=== PATIENT | female | born 1945 | race African-American/Black ===

== ENCOUNTER → 2017-06-02 | Outpatient (CLI) | payer MEDICARE | LOC: CARD 09:30 | PROVIDERS: ATTEND Physician Assistant | DX: I11.0 Hypertensive heart disease with heart failure (principal); I51.89 Other ill-defined heart diseases; Z82.49 Family history of ischemic heart disease and other diseases of the circulatory system | CPT/HCPCS: 93306 ==

== ENCOUNTER → 2018-01-17 | Outpatient (CLI) | payer MEDICARE ==
--- NOTE | 2018-01-17 13:19 | Diagnostic Imaging Report ---
PROCEDURE: US Thyroid. TECHNIQUE: Multiple real-time grayscale images were obtained of the thyroid in various projections. INDICATION: Multinodular goiter. COMPARISON: The patient's prior thyroid ultrasound done at [facility] is not available for direct comparison. The report is available. FINDINGS: The right lobe of the thyroid measures 5.8 x 2.9 x 3.1 cm and the left lobe measures 3.9 x 1.6 x 1.5 cm. There appears to be a solid nodule in the upper pole of left lobe measuring 8 mm x 6 mm x 10 mm. Previous report described a septated cystic mass in the upper pole. No cystic mass is visualized on today's study. In addition, prior report described a mixed solid-appearing nodule in the inferior aspect as well as an adjacent smaller solid nodule in the inferior aspect of left lobe. No nodules in the inferior left lobe are identified on today's study. On the right, there are two adjacent solid masses in the mid and lower pole. The largest is most cephalad measuring 2.4 x 2.5 x 2.8 cm. The smaller solid nodule just inferior to this measures 2.2 x 1.9 x 2.1 cm. Prior report described a solid mass in the lower pole of the right lobe measuring approximately 15 mm in diameter with an adjacent nodule measuring approximately 5 mm in diameter. IMPRESSION: Bilateral thyroid masses. The patient's prior thyroid ultrasound is not available for comparison, however, when comparing with the prior ultrasound report, there appears to have been significant increase in size of solid masses in the right lobe, as described. Thyroid neoplasm cannot be excluded and fine-needle aspiration could be performed. Dictated by: Dictated on workstation # [id number]
== END ==
LOC: RAD 11:43
PROVIDERS: ATTEND Internal Medicine Endocrinology, Diabetes & Metabolism
DX: E04.2 Nontoxic multinodular goiter (principal)
CPT/HCPCS: 76536

== ENCOUNTER → 2018-09-12 | Outpatient (CLI) | payer MEDICARE | LOC: CARD 09:33 | PROVIDERS: ATTEND Physician Assistant | DX: I11.9 Hypertensive heart disease without heart failure (principal); E66.9 Obesity, unspecified; Z82.49 Family history of ischemic heart disease and other diseases of the circulatory system; I34.0 Nonrheumatic mitral (valve) insufficiency | CPT/HCPCS: 93306 ==

== ENCOUNTER → 2019-03-13 | Outpatient (CLI) | payer MEDICARE ==
[~2019-03-13] VITALS: Ht 160 cm; Wt 107.0 kg
[~2019-03-13] MED LIST: CATHETER FLUSH 10 ML SYR IV PRN; REGADENOSON 0.4 MG/5 ML SYR (LEXISCAN) IV ONE
[2019-03-13 13:14] VITALS: BP 159/79
[2019-03-13 13:15] VITALS: BP 168/78
--- NOTE | 2019-03-13 17:21 | STRESS TEST ---
DATE OF SERVICE: 03/13/2019 LEXISCAN MYOVIEW STRESS TEST REFERRING PHYSICIAN: Dr. Edu Saucedo. Baseline heart rate is 71. Baseline blood pressure 166/77. Baseline EKG is sinus rhythm with frequent APCs with nonspecific T-wave abnormality. In summary, the patient was injected with 10.98 mCi of technetium-99 Myoview and the resting images were obtained. Then, the patient received 0.4 mg of Lexiscan followed by 31.6 mCi of technetium-99 Myoview. Throughout the test, there were continuous ST depression with T-wave inversion in II, III, aVF, V4, V5 and V6, persisted during recovery. The resting and stress images were reviewed and compared in the short axis, horizontal long axis, and vertical long axis views. Review of the images showed fixed defect involving the apex, reversible ischemia involving the mid to apical anterior wall, mid to apical inferior wall and anterolateral and inferolateral green. SSS is 18, SDS 10. There was no TID value calculated. On the gated images, the left ventricle is dilated with diffuse left ventricular hypokinesia with calculated ejection fraction 42%. CONCLUSION: 1. The patient tolerated Lexiscan well. 2. Reversible ischemia involving the mid to apical anterior wall, mid to apical inferior wall and anterolateral and inferolateral wall, fixed defect at the true apex. 3. Prominent left ventricle with diffuse left ventricular hypokinesia with calculated ejection fraction 42%. Job ID: [id number] DocumentID: [id number] Dictated Date: 03/13/2019 16:56:29 [employer]icon[employer] Processor Date: 03/13/2019 17:20:22 Dictated By: GINA DUVAL MD
== END ==
LOC: CARD 11:13
PROVIDERS: ATTEND Physician Assistant
DX: I11.9 Hypertensive heart disease without heart failure (principal); I51.89 Other ill-defined heart diseases; E66.9 Obesity, unspecified; Z68.41 Body mass index [BMI] 40.0-44.9, adult; Z82.49 Family history of ischemic heart disease and other diseases of the circulatory system
CPT/HCPCS: 78452; 93017

== ENCOUNTER 2019-06-12 08:27 | Day surgery (SDC) | payer MEDICARE ==
[~2019-06-12] VITALS: Ht 160 cm; Wt 104.3 kg
[2019-06-12] VITALS (10 sets, daily range): BP systolic 128–181; BP diastolic 61–95
[2019-06-12] MEDS ORDERED: LIDOCAINE 1% INJ 20 ML 20 ML VIAL ONE (08:30)
[2019-06-12] MEDS ORDERED: NS IV 1000 ML 1,000 ML ONE (08:30)
[2019-06-12] MEDS ORDERED: HEParin (CATH LAB) 2,000 ML IV ONE (08:30)
[2019-06-12] MEDS ORDERED: NS IV 1000 ML 1,000 ML IV SCH ×2 (08:39→11:43)
[2019-06-12 09:03] LABS: HEMOGLOBIN 13.9 G/DL (11.5-16.0); MEAN PLATELET VOLUME 9.4 FL (7.4-10.4); RED CELL DISTRIBUTION WIDTH 15.6 % (10.0-14.5); WHITE BLOOD COUNT 8.5 10^3/uL (4.3-11.0)
[2019-06-12] MEDS ORDERED: METO-451 PO (09:03)
[2019-06-12] MEDS ORDERED: TRIA1TAB3 PO (09:03)
[2019-06-12] MEDS ORDERED: ATOR10TA PO (09:03)
[2019-06-12] MEDS ORDERED: CLON0.2T PO (09:03)
[2019-06-12] MEDS ORDERED: LOSA50TA63 PO (09:03)
[2019-06-12] MEDS ORDERED: FURO80TA83 PO (09:03)
[2019-06-12] MEDS ORDERED: POTA10CA43 PO (09:03)
[2019-06-12] MEDS ORDERED: FENO54TA PO (09:03)
[2019-06-12] MEDS ORDERED: AMLO5TAB4 PO (09:03)
--- NOTE | 2019-06-12 09:04 | Diagnostic Imaging Report ---
INDICATION: Coronary atherosclerotic coronary artery disease. The heart is enlarged. There is prominence of the central vascularity. No viry edema, pneumonia, effusion or pneumothorax however. IMPRESSION: Cardiomegaly and some central vascular distention. Clear lungs with no acute pleural abnormality. Dictated by: Dictated on workstation # [id number]
[2019-06-12] MEDS ORDERED: PSYL0.525 PO (09:13)
[2019-06-12] MEDS ORDERED: ASPI-586 PO (09:13)
[2019-06-12] MEDS ORDERED: CHOL5000 PO (09:13)
[2019-06-12] MEDS ORDERED: NIAC500T9 PO (09:13)
[2019-06-12] MEDS ORDERED: CALC625T29 PO (09:13)
[2019-06-12] MEDS ORDERED: DIPH-718 PO (09:13)
[2019-06-12] MEDS ORDERED: CINN500C2 PO (09:13)
[2019-06-12] MEDS ORDERED: CALC-696 PO (09:13)
[2019-06-12] MEDS ORDERED: OMEG-160 PO (09:13)
[2019-06-12] MEDS ORDERED: OMEP20TA33 PO (09:13)
[2019-06-12 09:15] LABS: PROTHROMBIN TIME PATIENT 13.9 SEC (12.2-14.7)
[2019-06-12 09:24] LABS: ALBUMIN 4.3 GM/DL (3.2-4.5); BILIRUBIN,TOTAL 0.4 MG/DL (0.1-1.0); CALCIUM 10.4 MG/DL (8.5-10.1); CREATININE SERUM 1.24 MG/DL (0.60-1.30); POTASSIUM 3.9 MMOL/L (3.6-5.0); TOTAL PROTEIN 8.6 GM/DL (6.4-8.2)
--- NOTE | 2019-06-12 10:09 | NUR ---
SPOKE WITH PT (SHE HAD HER BOTTLES) TO COMPLETE THE MED REC. PT WAS ABLE TO VERIFY ALL HER MEDICATIONS WELL TELL HE HOW SHE TAKES THEM. OTC MEDS: ASPIRIN 81M TAB HS CITRACAL: 1 DAILY FIBER TABLETS: 1 BID VITAMIN D: 1 DAILY CINNAMON 500M CAPS DAILY DIPHENHYDRAMINE 25M DAILY PRN NIACIN 500M DAILY FISH OIL 1,000M CAPS DAILY OMEPRAZOLE 20M DAILY PSYLLIUM FIBER POWDER: 1 CAPFUL DAILY
[2019-06-12] MEDS ORDERED: MIDAZOLAM 5 MG/5 ML (VERSED) VIAL ONE (10:44)
[2019-06-12] MEDS ORDERED: fentaNYL INJECTION 100 MCG/2 ML AMP ONE (10:44)
[2019-06-12] MEDS ORDERED: NITRO DRIP 25000 MCG/D5W 250 ML IV ONE (10:45)
[2019-06-12] MEDS ORDERED: VERAPAMIL 5 MG/2 ML (CALAN) VIAL IV ONE (10:45)
[2019-06-12] MEDS ORDERED: HEParin 1000 UNIT/ML (10ML VIAL) FOR BOLUS ONE (10:45)
--- NOTE | 2019-06-12 11:12 | Cardiac Procedure Note-CS/ASA ---
Pre-Procedure Note Pre-Op Procedure Note H&P Reviewed The H&P was reviewed, patient examined and no changes noted. Date H&P Reviewed: Jun 12, 2019 Time H&P Reviewed: 11:12 Conscious Sedation Pre-Proced Time 11:12 ASA Score 3 For ASA 3 and 4: Consider anesthesia and medical clearance. Also, for patients with a history of failed moderate sedation consider anesthesia. Airway Lungs Heart ASA score ASA 1: a normal healthy patient ASA 2: a patient with a mild systemic disease (mid diabetes, controlled hypertension, obesity x ASA 3: a patient with a severe systemic disease that limits activity (angina, COPD, prior Myocardial infarction) ASA 4: a patient with an incapacitating disease that is a constant threat to life (CHF, renal failure) ASA 5: a moribund patient not expected to survive 24 hrs. (ruptured aneurysm) ASA 6: a declared brain- patient whose organs are being harvested. For emergent operations, add the letter E after the classification Mallampati Classification Grade 3 Sedation Plan Analgesia, Amnesia, Plan communicated to team members, Discussed options with patient/fam, Discussed risks with patient/fam The patient is an appropriate candidate to undergo the planned procedure, sedation, and anesthesia. The patient immediately re-assessed prior to indication. GINA DUVAL MD Jun 12, 2019 11:12
--- NOTE | 2019-06-12 11:46 | Discharge Inst-Post CATH ---
Discharge Inst-CATH/EP Problems Reviewed?: Yes Post Cardiac Cath/EP D/C Inst Follow Up/Plan Appointment with Dr. DUVAL's office in 2-4 weeks <b>CARDIAC CATH/EP PROCEDURE DISCHARGE INSTRUCTIONS</b> ACTIVITY * Go Home directly and rest. * Limit activity of the leg (or wrist if it was used) for 7 days including aerobics, swimming, jogging, bicycling, etc. * Restrict stair-climbing for 7 days if possible, if not, climb up with your non-cath leg, then bring together on the same step. * Avoid lifting, pushing, pulling or excessive movement of the affected extremity for 7 days. * Customary sexual activity may be resumed after 2 days-use caution not to use a position that strains or causes pain to the affected extremity. * No driving for 24 hours. * NO SMOKING. * Avoid straining for bowel movements for 7 days. * Gentle walking on level ground is allowed. * Returning to work will depend on the type of procedure and the results. Your doctor will discuss this with you. CALL YOUR DOCTOR FOR ANY OF THE FOLLOWING: *If bleeding from the puncture site occurs- Apply gentle pressure to site with clean cloth and call your doctor or EMS. * If a knot or lump forms under the skin, increases in size, or causes pain. * If bruising appears to be worsening or moving further down your leg instead of disappearing. * Temperature above 101 F. CARE OF YOUR GROIN INCISION; * Bruising or purple discoloration of the skin near the puncture site is common. * You may shower only, no bathtub bathing for 5 days. Be careful to avoid slipping as your leg may feel stiff. * If a closure device was used on your femoral artery, please see the attached guide regarding care of the device and your leg. * Leave dressing on FOR 24 hours. CARE OF YOUR WRIST INCISION; * Bruising or purple discoloration of the skin near the puncture site is common. * You may shower. * DO NOT submerge wrist. * Leave dressing on FOR 24 hours. GINA DUVAL MD Jun 12, 2019 11:45
--- NOTE | 2019-06-12 11:50 | Cardiac Cath Report ---
Cardiac Cath Report Physician (s)/[employer] (s) Physician GINA DUVAL MD Pre-Procedure Diagnosis Pre-Procedure Diagnosis: coronary artery disease Post-Procedure Note Procedure Start Date: Jun 12, 2019 Name of Procedure: left heart catheterization Left ventriculogram Findings/Procedure Note PROCEDURE NOTE: 74 years old lady with history of hypertension, had an abnormal stress test, scheduled for cardiac catheterization possible PTCA. After explaining the procedure to the patient, all pros and cons were explained, all questions were answered. The patient signed the consent and then she was placed on the cardiac catheterization laboratory. Groin was prepped SL fashion local anesthesia was used. Sheath placed in the Left radial, catheter was advanced to the left ventricular cavity left ventricular gram was done, pulled back into the right coronary artery and angiogram was done, I was unable to intubate the left system, exchanged over long J-wire into Sruthi left catheter advanced the left coronary system, angiogram was done. At the end of the procedure the sheath was removed. vascular band was used FINDINGS: Hemodynamics LV 103/15, end-diastolic pressure 15 Aorta 107/61 and mean of 81 ANATOMY: Left Main is free of obstructive disease Left Anterior Descending mild ectasia with mild disease obstructive disease Left Circumflex mild ectasia with mild disease no obstructive disease Right Coronory Artery is dominant with no obstructive disease LV Gram was done showing normal left ventricle size and systolic function estimated ejection fraction 60 percent CONCLUSION: 1. Mild coronary artery disease with mild ectasia in the left cord system nonobstructive disease 2. Mild left ventricular hypertrophy with normal systolic function, estimated ejection fraction 60 percent 3. No significant gradient across the left ventricular outflow tract DISCUSSION AND RECOMMENDATION: medical therapy is recommended no intervention is needed Anesthesia Type: Conscious Sedation Estimated blood loss (mL): 10 ml Contrast Amount: 50 ml Total Radiation Dose: 464 mGy Post-Procedure Diagnosis Post-operative diagnosis: Chest pain Coronary artery disease Hypertension Hyperlipidemia GINA DUVAL MD Jun 12, 2019 11:50
== END 2019-06-12 15:00 | disposition home or self-care (01) ==
LOC: CATH 08:27 → SDC 12:03 → CATH 15:00
PROVIDERS: ATTEND Internal Medicine Cardiovascular Disease
DX: I25.10 Atherosclerotic heart disease of native coronary artery without angina pectoris (principal); I11.9 Hypertensive heart disease without heart failure; I42.1 Obstructive hypertrophic cardiomyopathy; Z88.5 Allergy status to narcotic agent; Z79.899 Other long term (current) drug therapy; Z79.82 Long term (current) use of aspirin
CPT/HCPCS: 36415; 71045; 80053; 80061; 85027; 85610; 85730; 87081; 93458

== ENCOUNTER → 2020-12-16 | Outpatient (CLI) | payer MEDICARE ==
[~2020-12-16] MED LIST changes: +AMLO5TAB4 PO; +ASPI-586 PO; +ATOR10TA PO; +CALC-696 PO; +CALC625T29 PO; -CATHETER FLUSH 10 ML SYR IV PRN; +CHOL5000 PO; +CINN500C2 PO; +CLN.2T PO; +DIPH-718 PO; +FENO54TA PO; +FURO80TA83 PO; +LOSA50TA63 PO; +METO-451 PO; +NIAC500T9 PO; +OMEG-160 PO; +OMEP20TA33 PO; +POTA10CA43 PO; +PSYL0.525 PO; -REGADENOSON 0.4 MG/5 ML SYR (LEXISCAN) IV ONE; +TRIA1TAB3 PO
== END ==
LOC: CARD 08:30
PROVIDERS: ATTEND Physician Assistant
DX: I11.9 Hypertensive heart disease without heart failure (principal); I08.0 Rheumatic disorders of both mitral and aortic valves; E66.9 Obesity, unspecified; Z82.49 Family history of ischemic heart disease and other diseases of the circulatory system
CPT/HCPCS: 93306

== ENCOUNTER → 2022-02-14 | Outpatient (CLI) | payer MEDICARE ==
[~2022-02-14] MED LIST changes: +REGADENOSON 0.4 MG/5 ML SYR (LEXISCAN) IV ONE
[2022-02-14] MEDS: CATHETER FLUSH 10 ML SYR IVP PRN ×2 (08:04→09:33)
[2022-02-14 09:32] VITALS: BP 229/106
--- NOTE | 2022-02-14 11:21 | Cardiology Stress Test Report ---
Stress Test Report Date of Procedure/Referring: Date of Procedure: February 14, 2022 PCP Gina Ocampo MD Admitting Physician Edu Saucedo DO Indications: CP Baseline Heart Rate: 87 Baseline Blood Pressure: Blood Pressure Systolic: 229 Blood Pressure Diastolic: 106 Baseline Vitals Vital Signs Date Time Temp Pulse Resp B/P (MAP) Pulse Ox O2 Delivery O2 Flow Rate FiO2 02/14/22 09:32 87 16 229/106 (147) 95 Room Air Baseline EKG: Baseline EKG: LBBB Summary After explaining the procedure to the patient, she signed a consent and then brought to the stress nuclear laboratory. Patient received 0.4 mg Lexiscan for stress test, ECG, heart rate and blood pressure were monitored continuously. Resting and stress dose of radio tracer were injected, imaging was acquired and reviewed in short axis, horizontal long axis and vertical long axis views. TID: 1.53 SSS: 15 SDS: 5 EF: 52 1. Patient tolerated Lexiscan well 2. Baseline left bundle branch block persisted during test 3. Baseline hypertension persisted during test 4. Reversible ischemia involving the whole anterior wall, anterolateral wall and anterior septum 5. Transient ischemic dilatation 1.53 6. Normal left ventricular size with mild hypokinesia of the inferior wall and anterior wall, ejection fraction 52% GINA OCAMPO MD February 14, 2022 11:21
== END ==
LOC: CARD 08:15
PROVIDERS: ATTEND Internal Medicine Cardiovascular Disease
DX: I10 Essential (primary) hypertension (principal); I25.10 Atherosclerotic heart disease of native coronary artery without angina pectoris
CPT/HCPCS: 78452; 93017; A9502

== ENCOUNTER → 2022-02-23 | Outpatient (CLI) | payer MEDICARE ==
[~2022-02-23] MED LIST changes: -REGADENOSON 0.4 MG/5 ML SYR (LEXISCAN) IV ONE
== END ==
LOC: CARD 09:30
PROVIDERS: ATTEND Internal Medicine Cardiovascular Disease
DX: I11.9 Hypertensive heart disease without heart failure (principal); I34.0 Nonrheumatic mitral (valve) insufficiency
CPT/HCPCS: 93306